=== PATIENT | female | born 1960 | race Two or more races ===

== ENCOUNTER 2023-11-30 18:31 | Emergency (ER) | payer OTHER ==
[~2023-11-30] VITALS: Ht 170.2 cm; Wt 66.7 kg
[2023-11-30] MEDS ORDERED: COZAAR25 MG PO (18:37)
[2023-11-30] MEDS ORDERED: CLINDAMYCIN PHOSPHATE 150 MG/ML (300mg) IM STA (20:17)
[2023-11-30] MEDS ORDERED: CLINDAMYCIN PHOSPHATE 150 MG/ML (300mg) ONE (21:06)
== END 2023-11-30 22:50 | disposition home or self-care (01) ==
LOC: ER 18:33
DX: S61.223A Laceration with foreign body of left middle finger without damage to nail, initial encounter (principal); W26.0XXA Contact with knife, initial encounter; Y93.89 Activity, other specified; Y92.010 Kitchen of single-family (private) house as the place of occurrence of the external cause